=== PATIENT | female | born 1990 | race Caucasian/White ===

== ENCOUNTER 2020-06-06 14:54 | Emergency (ER) | payer OTHER, SELFPAY ==
[2020-06-06 14:59] VITALS: BP 134/79; PULSE 94; RESP 20; TEMP 36.4; O2SAT 99
[2020-06-06 16:09] LABS: Basophils Absolute Auto 0.1 K/mm3 (0.0-0.1); Basophils Percent Auto 0.4 % (0.2-1.2); Eosinophils Absolute Auto 0.3 K/mm3 (0-0.3); Eosinophils Percent Auto 1.8 % (0-4.4); Hematocrit 41.4 % (37.0-47.0); Hemoglobin 14.2 g/dL (12.0-15.0); Immature Granulocyte Absolute 0.39 K/mm3 (0.00-0.031); Immature Granulocyte Percent A 2.7 % (0-0.5); Lymphocytes Absolute Auto 2.02 K/mm3 (0.9-3.2); Lymphocytes Percent Auto 13.8 % (18.3-44.2); Mean Corpuscular HGB Conc 34.3 g/dl (32-36); Mean Corpuscular Hemoglobin 30.8 pg (26-34); Mean Corpuscular Volume 89.8 fl (80-100); Mean Platelet Volume 10.8 fl (7.4-10.4); Monocytes Absolute Auto 0.8 K/mm3 (0.1-0.6); Monocytes Percent Auto 5.2 % (2.6-8.5); Neutrophils Absolute Auto 11.2 K/mm3 (1.3-6.7); Neutrophils Percent Auto 76.1 % (45.5-73.1); Platelet Count Result 186 k/mm3 (150-375); Red Blood Count 4.61 M/mm3 (4.2-5.4); Red Cell Distribution Width 12.7 % (11.5-14.5); White Blood Count 14.7 K/mm3 (4.5-10.0)
[2020-06-06 16:11] LABS: Add Urine Microscopic? NO; Appearance Urine Clear (Clear); Bilirubin Urine Negative (Negative); Blood Urine Negative (Negative); Color Urine Yellow (Yellow); Glucose Urine UA Negative (Negative); Ketones Urine Negative (Negative); Leukocyte Esterase Ur Negative LEU/UL (Negative); Nitrate Urine Negative (Negative); Protein Urine Negative (Negative); Urobilinogen Urine Negative mg/dL (<2.0)
[2020-06-06 16:22] LABS: Alanine Aminotransferase 17 U/L (4-35); Alkaline Phosphatase 132 U/L (38-126); Anion Gap 8 mmol/L (8-16); Aspartate Amino Transferase 24 U/L (14-36); Bilirubin,Total 0.2 mg/dL (0.2-1.3); Blood Urea Nitrogen 7 mg/dL (7-17); Calcium 9.1 mg/dL (8.4-10.2); Carbon Dioxide 23 mmol/L (22-30); Chloride 105 mmol/L (98-107); Estimated CRCL calculation 116 ml/min; Estimated Glomerular Filt Rate > 60; Glucose 82 mg/dL (65-105); Potassium 3.7 mmol/L (3.4-5.0); Sodium 136 mmol/L (137-145)
--- NOTE | 2020-06-06 17:33 | ED.GENADULT ---
HPI - General Adult General Chief complaint: Unspecified Stated complaint: 33 weeks preg, slurred words and R arm numbness Time Seen by Provider: 06/06/20 15:11 Source: patient Mode of arrival: ambulatory Limitations: no limitations History of Present Illness HPI narrative: Patient is a 29-year-old 33-week, G1, P0 female with chief complaint of a 10 to 15-minute episode where she was trying her spine to her friend had troubles began with right arm tingling at approximately 2 PM. Patient states that she had already eaten a bagel so they gave her some Gatorade to drink. She states she does feel as if she could not get the words out and it lasted a few seconds. She denies syncope, diaphoresis or palpitation at that time. She denies unilateral extremity weakness. She states her symptoms completely resolved and she does not have any symptoms at this time. Patient states that her [employer] is Dr. Anthony in [place]. She states that she has had a normal without any complications. She denies a history of preeclampsia, stroke or SD. Patient is not a smoker. Patient denies any pain, chest pain, shortness of breath, nausea, vomiting, syncope, dizziness or any other symptoms at this time. Related Data Home Medications Medication Instructions Recorded Confirmed No Home Medications 06/06/20 06/06/20 Allergies Allergy/AdvReac Type Severity Reaction Status Date / Time amoxicillin Allergy Hives Verified 06/06/20 15:08 Review of Systems Review of Systems: Narrative: CONSTITUTIONAL: Denies fever, chills, or sweats. EYES: Denies visual changes, redness, or discharge. ENT: Denies rhinorrhea, congestion, sore throat, or otalgia. CARDIOVASCULAR: Denies chest pain, palpitations, or edema. RESPIRATORY: Denies cough or dyspnea. GASTROINTESTINAL: Denies abdominal pain, nausea, vomiting, or diarrhea. GENITOURINARY: Denies dysuria or hematuria. SKIN: Denies rash or itching. MUSCULOSKELETAL: Denies back pain, joint pain, or myalgia. NEUROLOGIC: Reports resolved tingling and speech changes denies headache, numbness, dizziness, or weakness. PSYCHIATRIC: Denies anxiety or depression. PMFSH Social History Social History Gender identity (if verbalized by the patient): Female Exam Narrative: Exam Narrative: GENERAL: Well-appearing, well-nourished, and in no acute distress. HEAD: Normocephalic, atraumatic. EYES: PERRLA and EOMI. ENT: Nares clear, no rhinorrhea or epistaxis. Mucous membranes moist. Oropharynx without tonsillar hypertrophy exudate or other lesions. Bilateral TMs pearly clemente nonbulging NECK: Supple. No adenopathy or masses. Range of motion intact CHEST: Clear to auscultation. No respiratory distress. No wheezes rales or rhonchi HEART: Regular rate and rhythm. No murmur heard. Normal peripheral pulses. ABDOMEN: Soft, nontender, gravid, normal active bowel sounds. EXTREMITIES: Normal range of motion. No edema. SKIN: Warm, dry, no rash. NEURO: No focal deficits. Alert and oriented x3. Cerebellar function intact. No pronator drift. Heel and hickman test normal. Gait is steady. No unilateral weakness. Speech is normal and intact and appropriate. Peripheral vision intact. PSYCH: Normal mood and affect. Course Vital Signs Vital signs: Vital Signs Temperature 97.5 F L 06/06/20 14:59 Pulse Rate 94 06/06/20 14:59 Respiratory Rate 20 06/06/20 14:59 Blood Pressure 134/79 06/06/20 14:59 Pulse Oximetry 99 06/06/20 14:59 Temperature 97.5 F L 06/06/20 14:59 Pulse Rate 88 06/06/20 17:44 Respiratory Rate 18 06/06/20 17:44 Blood Pressure 138/78 06/06/20 17:44 Pulse Oximetry 99 06/06/20 17:44 Medical Decision Making MDM Narrative Medical decision making narrative: Consult with patient's [employer] who states that maternal- medicine needs to be consulted for recommendations to see if additional work-up is needed. Contacted Dr. Baxter at [facility] maternal- medicine who states that
[2020-06-06 17:44] VITALS: BP 138/78; PULSE 88; RESP 18; O2SAT 99
== END 2020-06-06 17:46 | disposition home or self-care (01) ==
PROVIDERS: Physician Assistant; Emergency Provider Family Medicine; PCP Internal Medicine Infectious Disease
DX: O26.893 Other specified pregnancy related conditions, third trimester (principal); R29.818 Other symptoms and signs involving the nervous system; Z3A.33 33 weeks gestation of pregnancy
CPT/HCPCS: 36415; 80053; 81003; 85025; 99283